=== PATIENT | female | born 1970 | race Caucasian/White ===

== ENCOUNTER 2016-11-14 09:39 | Emergency (ER) | payer OTHER, BC ==
[2016-11-14] MEDS ORDERED: OXYCODONE-ACETAMINOPHEN 5-325 MG TABLET PO ONE (10:32)
[2016-11-14] MEDS ORDERED: PREDNISONE 20 MG TABLET PO ONE (10:32)
--- NOTE | 2016-11-14 10:38 | ER Document Report ---
ED General - General Chief Complaint: Back Pain Stated Complaint: WEAKNESS Time Seen by Provider: 11/14/16 10:11 Information source: Patient Notes: 45-year-old female with past medical history as recorded including idiopathic anaphylaxis who presents today with the initial acute onset of back pain getting out of the car. She states it is mostly to her right lower back. She states it feels like "spasms". She states she had walkover in a "hunched over position". She denies any foot drop, weakness of her legs, radiation down her legs, or incontinence. Patient states when 15 years she had a similar episode of some back pain but it was not as "intense". She was provided pain medications and muscle relaxers by EMS. She states that the pain is improved. She states worse when she moves and better when she rests. TRAVEL OUTSIDE OF THE [place] IN LAST 30 DAYS: No - HPI Onset: Just prior to arrival Onset/Duration: Sudden Quality of pain: Other - See above Severity: Moderate Pain Level: 2 Associated symptoms: Other - See above Exacerbated by: Movement Relieved by: Remaining still Similar symptoms previously: Yes Recently seen / treated by doctor: Yes - Related Data Allergies/Adverse Reactions: No Known Allergies Allergy (Verified 05/22/15 18:38) Past Medical History - General Information source: Patient - Social History Smoking Status: Never Smoker Cigarette use (# per day): No Chew tobacco use (# tins/day): No Smoking Education Provided: No Frequency of alcohol use: None Drug Abuse: None Family History: None - Immunizations Immunizations up to date: Yes Hx Diphtheria, Pertussis, Tetanus Vaccination: Yes Review of Systems - Review of Systems Constitutional: denies: Fever Cardiovascular: denies: Chest pain, Palpitations Gastrointestinal: denies: Abdomen distended, Abdominal pain, Vomiting Genitourinary: denies: Dysuria Musculoskeletal: denies: Leg swelling Neurological/Psychological: denies: Weakness, Loss of power -: Yes All other systems reviewed and negative Physical Exam - Vital signs Vitals: Temp Pulse Resp BP Pulse Ox 98.0 F 76 18 123/87 H 100 11/14/16 09:51 11/14/16 09:51 11/14/16 09:51 11/14/16 09:51 11/14/16 09:51 Notes: Reviewed vital signs and nursing note as charted by RN. CONSTITUTIONAL: Alert and oriented and responds appropriately to questions. Well -appearing; well-nourished HEAD: Normocephalic; atraumatic CARD: Regular rate and rhythm; no murmurs, no clicks, no rubs, no gallops; symmetric distal pulses ABD/GI: Normal bowel sounds; non-distended; soft, non-tender BACK: The back appears normal and is non-tender to palpation along the midline spine without any swelling, erythema, or fluctuance. Patient has some mild paraspinal muscular tenderness. EXT: Non-tender to palpation; no cyanosis, no effusions, no edema SKIN: No acute lesions noted NEURO: Patient has 5 out of 5 bilateral plantar and flexor strength at the feet. 2+ patellar reflexes bilaterally. PSYCH: The patient's mood and manner are appropriate. Grooming and personal hygiene are appropriate. Course - Re-evaluation Re-evalutation: 11/14/16 10:38 Given the history, physical examination as dictated above, I believe that the patient most likely has a herniated disc with muscle spasm. I detect no signs of central cord compression. Patient has had no trauma and I do not believe the patient requires any x-rays. Reflexes and strength as recorded. I will provide pain medications, strict return precautions, 5 days of steroids, and orthopedic follow-up instructions. 11/14/16 11:20 No change in neurologic examination. Patient's pain is improved. Patient will be discharged home with strict return precautions, steroids, and follow-up with orthopedics. - Vital Signs Vital signs: Temp Pulse Resp BP Pulse Ox 98.0 F 76 18 123/87 H 100 11/14/16 09:51 11/14/16 09:51 11/14/16 09:51 11/14/16 09:51 11/14/16 09:51 Discharge - Discharge Clinical Impression: Low back strain Qualifiers: Encounter type: initial encounter Qualified Code(s): S39.012A - Strain of muscle, fascia and tendon of lower back, initial encounter Condition: Good Disposition: HOME, SELF-CARE Additional Instructions: Comeback immediately with any fevers, weakness or numbness of the legs, incontinence, or any other acute problems. Please follow-up with orthopedics as we have discussed. Prescriptions: Hydrocodone/Acetaminophen [Friendship 5-325 Tablet] 1 each PO Q6 PRN #12 tablet PRN Reason: For Pain Ibuprofen [Motrin 600 Mg Tablet] 600 mg PO Q6H PRN #28 tablet PRN Reason: for pain Prednisone [Deltasone 20 mg Tablet] 3 tab PO DAILY 5 Days tablet Referrals: MILES VILLATORO DO [ACTIVE STAFF] - Follow up as needed
[2016-11-14 11:38] VITALS: BP 108/71
== END 2016-11-14 11:39 | disposition home or self-care (01) ==
LOC: ER 09:39
DX: S39.012A Strain of muscle, fascia and tendon of lower back, initial encounter (principal); X58.XXXA Exposure to other specified factors, initial encounter; Z87.892 Personal history of anaphylaxis
CPT/HCPCS: 99283; 82962; J7512